=== PATIENT | female | born 1990 | race Caucasian/White ===

== ENCOUNTER 2021-07-31 02:21 | Emergency (ER) | payer BC ==
[~2021-07-31] VITALS: Ht 160 cm; Wt 72.6 kg
[2021-07-31 02:32] VITALS: BP_SYST 122
[2021-07-31] MEDS ORDERED: IBUPROFEN 600 MG TABLET PO ONE (03:00)
[2021-07-31 03:10] LABS: BILIRUBIN,URINE NEGATIVE (NEGATIVE); BLOOD, URINE 2+ (NEGATIVE); CLARITY/URINE CLEAR (CLEAR); COLOR,URINE YELLOW (YELLOW); GLUCOSE,URINE NEGATIVE (NEGATIVE); KETONES,URINE NEGATIVE (NEGATIVE); LEUKOCYTE ESTERASE ,URINE NEGATIVE (NEGATIVE); NITRITE, URINE NEGATIVE (NEGATIVE); PROTEIN URINE NEGATIVE (NEGATIVE); UROBILINOGEN,URINE 0.2 (0.2-1.0)
[2021-07-31 03:19] LABS: BACTERIA,URINE FEW /HPF (None Seen)
[2021-07-31 03:20] LABS: MUCUS,URINE 2+ /LPF (None Seen)
[2021-07-31 03:25] LABS: BASOPHILS # (AUTO) 0.1 K/uL (0.0-0.2); BASOPHILS % (AUTO) 0.8 % (0.0-2.0); EOSINOPHILS # (AUTO) 0.2 K/uL (0.0-0.4); EOSINOPHILS % (AUTO) 3.5 % (0.0-4.0); HEMATOCRIT 42.3 % (36-48); HEMOGLOBIN 14.1 g/dL (12.0-16.0); LYMPHOCYTES # (AUTO) 1.4 K/uL (1.0-5.5); LYMPHOCYTES % (AUTO) 20.3 % (20.5-51.5); MEAN CORPUSCULAR HEMOGLOBIN 29 pg (27-31); MEAN CORPUSCULAR HGB CONC 33 % (32-36); MEAN CORPUSCULAR VOLUME 88 fL (79.0-98.0); MONOCYTES # (AUTO) 0.5 K/uL (0.0-1.0); MONOCYTES % (AUTO) 7.7 % (1.7-9.3); NEUTROPHILS # (AUTO) 4.6 K/uL (1.8-7.7); NEUTROPHILS % (AUTO) 67.7 % (40.0-70.0); PLATELET COUNT (AUTO) 278 K/uL (130-430); RED CELL DISTRIBUTION WIDTH 13.2 % (9.0-15.0); WHITE BLOOD COUNT (AUTO) 6.8 K/uL (4.8-10.8)
[2021-07-31] MEDS ORDERED: NACL 0.9% 1,000 ML IV ONE (03:45)
[2021-07-31] MEDS ORDERED: cefTRIAXone 1 GM in D5W 50 ML IV ONE (03:45)
[2021-07-31] MEDS ORDERED: cefTRIAXone 1 GM VIAL ONE (03:54)
[2021-07-31 03:57] LABS: ERYTHROCYTE SEDIMENTATION RATE 18 MM/HR (0-20)
[2021-07-31] MEDS ORDERED: cefTRIAXone 1 GM VIAL IM ONE (04:00)
[2021-07-31] MEDS ORDERED: IBUP-1969 PO (04:07)
[2021-07-31] MEDS ORDERED: CEFU250T85 PO (04:07)
[2021-07-31 04:15] VITALS: BP_SYST 121
== END 2021-07-31 04:15 | disposition home or self-care (01) ==
LOC: SED 02:21
DX: L72.3 Sebaceous cyst (principal); Z88.8 Allergy status to other drugs, medicaments and biological substances; Z79.899 Other long term (current) drug therapy
CPT/HCPCS: 36415; 81000; 85025; 85651; 87040; 87086; 96372; 99283; J0696

== ENCOUNTER 2023-11-26 04:03 | Emergency (ER) | payer BC ==
[~2023-11-26] VITALS: Ht 160 cm; Wt 65.3 kg
[~2023-11-26 04:03] MED LIST: CEFU250T85 PO; IBUP-1969 PO
[2023-11-26 04:08] VITALS: BP_SYST 112; PULSE 65; RESP 21; TEMP 97.1; O2SAT 100
[2023-11-26 05:24] LABS: BASOPHILS % (AUTO) 0.7 % (0.0-2.0); EOSINOPHILS # (AUTO) 0.5 K/uL (0.0-0.4); EOSINOPHILS % (AUTO) 7.7 % (0.0-4.0); HEMATOCRIT 37.8 % (36-48); HEMOGLOBIN 12.9 g/dL (12.0-16.0); LYMPHOCYTES # (AUTO) 1.3 K/uL (1.0-5.5); MEAN CORPUSCULAR HEMOGLOBIN 29 pg (27-31); MEAN CORPUSCULAR HGB CONC 34 % (32-36); MEAN CORPUSCULAR VOLUME 85 fL (79.0-98.0); MONOCYTES # (AUTO) 0.5 K/uL (0.0-1.0); MONOCYTES % (AUTO) 8.1 % (1.7-9.3); NEUTROPHILS # (AUTO) 3.9 K/uL (1.8-7.7); NEUTROPHILS % (AUTO) 62.5 % (40.0-70.0); PLATELET COUNT (AUTO) 277 K/uL (130-430); RED BLOOD CELL COUNT(AUTO) 4.43 MIL/uL (4.2-6.2); RED CELL DISTRIBUTION WIDTH 13.8 % (9.0-15.0); WHITE BLOOD COUNT (AUTO) 6.2 K/uL (4.8-10.8)
[2023-11-26 05:43] LABS: ANION GAP 10 (5-15); CALCIUM 8.8 mg/dL (8.4-11.0); CARBON DIOXIDE 28 mmol/L (23-29); CHLORIDE 106 mmol/L (98-107); CREATININE 0.71 mg/dL (0.55-1.30); GFR AFRICAN AMERICAN 120 mL/min (>90); GLUCOSE 96 mg/dL (74-106); POTASSIUM 3.3 mmol/L (3.5-5.1); SODIUM SERUM 144 mmol/L (136-145); UREA NITROGEN, BLOOD 13 mg/dL (8-21)
[2023-11-26 05:53] LABS: CREATINE KINASE, TOTAL 39 U/L (26-192)
[2023-11-26 06:11] LABS: GFR NON AFRICAN-AMERICAN 100 mL/min (>90)
[2023-11-26 06:58] VITALS: BP_SYST 112; PULSE 65; RESP 21; TEMP 97.1; O2SAT 100
== END 2023-11-26 04:08 | disposition home or self-care (01) ==
LOC: SED 04:03
DX: R07.9 Chest pain, unspecified (principal); Z85.43 Personal history of malignant neoplasm of ovary; Z88.2 Allergy status to sulfonamides; Z79.899 Other long term (current) drug therapy
CPT/HCPCS: 36415; 71045; 80048; 81025; 82550; 83037; 84484; 85025; 85379; 93005; 99285